=== PATIENT | female | born 1950 | race Caucasian/White ===

== ENCOUNTER 2019-05-21 08:42 | Day surgery (SDC) | payer OTHER ==
[2019-05-19 15:10] VITALS: BMI 26.4
--- NOTE | 2019-05-21 08:01 | HP ---
[facility] - Chief Complaint Chief Complaint: RIGHT KNEE PAIN History Source: Patient - Past Medical History Allergies/Adverse Reactions: Allergies Allergy/AdvReac Type Severity Reaction Status Date / Time No Known Drug Allergies Allergy Verified 05/19/19 14:55 - Current Medications Current Medications: Home Medications Medication Instructions Recorded NK [No Known Home Medication] 05/19/19 [facility] Physical Exam - Physical Examination Extremities: Other (+ RIGHT MEDIAL JOINT TENDERNESS) [facility] Impression/Plan - Impression/Plan Impression: INTERNAL DERANGEMENT RIGHT KNEE Operative Procedure: ARTHROSCOPY RIGHT KNEE Date to be Performed: 05/21/19
[~2019-05-21 08:42] MED LIST: LACTATED RINGERS SOLUTION 1,000 ML IV SCH; ONDANSETRON 4 MG/2 ML VIAL IVPUSH PRN; oxyCODONE HCL 5 MG TABLET PO PRN
[2019-05-21] MEDS ORDERED: MIDAZOLAM HCL 2 MG/2 ML SINGLE DOSE VIAL ONE (09:22)
[2019-05-21] MEDS ORDERED: KETOROLAC TROMETHAMINE 30 MG/1 ML VIAL ONE (09:23)
[2019-05-21] MEDS ORDERED: PROPOFOL 20 ML ONE (09:23)
[2019-05-21] MEDS ORDERED: LIDOCAINE HCL/PF 2% SDV 5ML VIAL ONE (09:23)
[2019-05-21] MEDS ORDERED: DEXAMETHASONE SOD PHOSPHATE 4 MG/1 ML VIAL ONE (09:23)
[2019-05-21] MEDS ORDERED: LIDOCAINE HCL 1% EPINEPHRINE 1:200,000 30 ML VIAL (PF) ONE (11:04)
[2019-05-21] MEDS ORDERED: ACETAMINOPHEN 1000 MG/100 ML VIAL (NON FORMULARY) IVPB ONE ×2 (12:00→13:20)
--- NOTE | 2019-05-21 12:01 | OP ---
Operative Note - Note: Operative Date: 05/21/19 Pre-Operative Diagnosis: internal derangement right knee Operation: arthroscopy right knee with chondroplasty medial trochlea Post-Operative Diagnosis: Same as Pre-op Surgeon: Efra Cho Estimated Blood Loss (mls): 0 Operative Report Dictated: Yes
[2019-05-21 13:06] VITALS: TEMP 97.7
[2019-05-21] MEDS ORDERED: ACETAMINOPHEN INJECTION 100 ML IVPB ONE (13:19)
[2019-05-21 13:55] VITALS: BP 137/71; PULSE 77
--- NOTE | 2019-05-21 20:18 | SPEC ---
DATE OF OPERATION: 05/21/2019 PREOPERATIVE DIAGNOSIS: Internal derangement of the right knee. POSTOPERATIVE DIAGNOSIS: Internal derangement of the right knee. PROCEDURE: Arthroscopy right knee with debridement and chondroplasty of the medial femoral condyle. SURGEON: Efra Cho MD ANESTHESIA: General with LMA. CLOSURE: 4-0 nylon. COMPLICATIONS: None. CONDITION: Stable DESCRIPTION OF PROCEDURE: Patient was taken to the operating room on May 21, 2019. General anesthesia with LMA was administered by the anesthesiologist. Right lower extremity was prepped and draped in the usual sterile fashion. The mediolateral and patellofemoral portal sites were infiltrated with 1% Xylocaine with epinephrine. Both portals were then made with a 15 blade followed by a blunt trocar. The scope was placed in the lateral infrapatellar portal and up into the suprapatellar pouch. The knee was inflated with a cocktail of 10 mL of 1% Xylocaine, 10 mL of 0.5% Marcaine, and 20 mL of arthroscopic saline. After allowing the anesthetic to work in the knee, the procedure was performed. The medial and lateral gutters were visualized to be intact with no loose bodies. The undersurface of the patella was found to be intact and medial trochlea was found to have grade 4 changes. Any loose articular cartilage was debrided using a shaver. With valgus stress on the knee, the medial compartment was entered. The medial meniscus was visualized, probed, and found to be basically intact. Some fraying of its edge, but otherwise no tear that needed to be addressed. The medial femoral condyle was run and found to be intact as well as the medial tibial plateau. At 90 degrees, the ACL was visualized, probed, and found to be intact. In the figure 4 position, the lateral compartment was entered. The lateral meniscus was visualized, probed, and found to be intact. The lateral femoral condyle was run and found to be intact as was the lateral tibial plateau. The knee was irrigated with copious amounts of irrigation. The inferomedial portal was closed then with 4-0 nylon. Prior to closure, 20 mL of 0.5% Marcaine was infused into the knee for postoperative analgesia. A sterile pressure dressing was placed over the knee. Patient awakened from anesthesia and transferred to recovery in stable condition. No complication. Estimated blood loss negligible. Leonardo [id number]
--- NOTE | 2019-05-23 15:49 | PATH ---
Surgical Pathology Report Patient Name: LIAM OLIVIER [facility]. Rec. #: [id number] /Age/Gender: 1950 (Age: 69) / F Account: [id number] Location: [facility] Taken: 05/21/2019 Received: 05/21/2019 Reported: 05/23/2019 Physicians: Efra Cho M.D. Specimen(s) Received RIGHT KNEE SHAVINGS Clinical History Right knee pain Final Diagnosis KNEE SHAVINGS, RIGHT, ARTHROSCOPY: FRAGMENTS OF CARTILAGE, DENSE FIBROCONNECTIVE TISSUE, ADIPOSE TISSUE, AND REACTIVE SYNOVIUM. Electronically Signed Zari Aguayo M.D. Gross Description Received in formalin, labeled "right knee shavings," is a 4.5 x 3.8 x 0.3 cm. aggregate of deras-yellow soft tissue fragments. A packaging sales representative portion is submitted in one cassette. 05/22/2019 saudi05/22/2019
== END 2019-05-21 14:11 | disposition home or self-care (01) ==
LOC: JASU-SURG 08:42
PROVIDERS: ATTEND Orthopaedic Surgery
PROC: 0SBC4ZZ Excision of Right Knee Joint, Percutaneous Endoscopic Approach (ICD-10-PCS; principal; 2019-05-21 10:00)
DX: M23.91 Unspecified internal derangement of right knee (principal)
CPT/HCPCS: 88304-TC; 94760; J0131